=== PATIENT | male | born 1975 | race Caucasian/White ===

== ENCOUNTER 2019-01-05 15:07 | Outpatient (REF) | payer BC, SELFPAY ==
[2019-01-05 18:56] LABS: Calculated LDL 88 mg/dL; Cholesterol 134 mg/dL (50-200); Glucose 97 mg/dL (70-100); HDL Cholesterol 20 mg/dL (40-60); Triglyceride 133 mg/dL (30-150)
== END 2019-01-05 15:27 ==
LOC: NCHCN 15:07
PROVIDERS: PCP Family Medicine; Visit Provider Family Medicine
DX: Z00.00 Encounter for general adult medical examination without abnormal findings (principal); Z13.1 Encounter for screening for diabetes mellitus; Z13.220 Encounter for screening for lipoid disorders; E66.9 Obesity, unspecified
CPT/HCPCS: 80061; 82947

== ENCOUNTER 2020-03-13 20:51 | Outpatient (REF) | payer BC, SELFPAY ==
[2020-03-17 22:28] LABS: Patient Race White; SARS-CoV-2 RNA Undetected (Undetected); SARS-CoV-2 Specimen Source Nasal
== END 2020-03-13 21:11 ==
LOC: NCHCN 20:51
PROVIDERS: PCP Family Medicine; Visit Provider Nurse Practitioner Family
DX: Z20.828 Contact with and (suspected) exposure to other viral communicable diseases (principal)
CPT/HCPCS: U0003

== ENCOUNTER 2020-03-21 20:41 | Outpatient (REF) | payer BC, SELFPAY ==
[2020-03-23 13:50] LABS: Patient Race White; SARS-CoV-2 RNA Undetected (Undetected); SARS-CoV-2 Specimen Source Nasal
== END 2020-03-21 21:01 ==
LOC: NCHCN 20:41
PROVIDERS: PCP Family Medicine; Visit Provider Nurse Practitioner Family
DX: Z20.828 Contact with and (suspected) exposure to other viral communicable diseases (principal)
CPT/HCPCS: U0003

== ENCOUNTER 2023-11-22 18:13 | Emergency (ER) | payer BC, SELFPAY ==
[2023-11-22 18:20] VITALS: BP 154/100; PULSE 89; RESP 18; TEMP 37; O2SAT 97
[2023-11-22 18:23] VITALS: BP 154/100; PULSE 89; RESP 18; TEMP 37; O2SAT 97
--- NOTE | 2023-11-22 18:45 | ED.GENADUL_ITS ---
Discharge Plan Disposition Patient Disposition: Home Condition: Stable Discharge Details Chief Complaint: Sorethroat Clinical Impression: Sore throat Primary Care Provider: Dayanna Jang ED Provider: Rufino Jaramillo Home Meds and New Rx's Prescriptions: No Action No Known Home Meds Discharge Instructions Instructions: Viral Pharyngitis, Acid reflux and GERD in adults Additional Instructions: Please follow-up with your primary care physician. Return to the emergency department for any worsening symptoms HPI General Date/Time Provider Initiated Documentation: 11/22/23 18:24 . HPI Narrative: 48-year-old male presents with sore throat over the last 2 days worse after eating raspberries and blueberries, had a very cobbler last night, felt some esophageal regurgitation last night, no trouble swallowing no trouble speaking or trouble breathing. Related Data Home Medications ?Medication ?Instructions ?Recorded ?Confirmed Unknown [No Known Home Meds] 02/01/14 11/22/23 Allergies Allergy/AdvReac Type Severity Reaction Status Date / Time No Known Allergies Allergy Unverified 11/22/23 18:22 General Stated Complaint: Sorethroat VIVIAN: 4 Exam Narrative Exam Narrative: Alert interactive no acute distress resting comfortably Moist mucous membranes tolerating secretions Unremarkable posterior oropharynx midline uvula no exudate or asymmetry no sublingual submental or submandibular induration, no neck discomfort no palpable lymphadenopathy Speaking full sentences no respiratory distress No rash Course Vital Signs Vital signs: Vital Signs Temperature 37.0 C 11/22/23 18:20 Pulse 89 11/22/23 18:20 Respiratory Rate 18 11/22/23 18:20 Blood Pressure 154/100 H 11/22/23 18:20 Pulse Oximetry 97 11/22/23 18:20 Temperature 37.0 C 11/22/23 18:23 Temperature Source Temporal Artery Scan 11/22/23 18:23 Pulse 89 11/22/23 18:23 Respiratory Rate 18 11/22/23 18:23 Respiratory Effort Normal, Non-Labored 11/22/23 18:23 Blood Pressure 154/100 H 11/22/23 18:23 Blood Pressure Position Sitting 11/22/23 18:23 Pulse Oximetry 97 11/22/23 18:23 Oxygen Delivery Method Room Air 11/22/23 18:23 Oxygen Flow Rate 0 11/22/23 18:23 Lab/Test Results Lab/Test Results: 11/22/23 18:19 Tonsil - Not Specified Group A Streptococcus Culture - Pending POC Strep Test-DUDLEY(Rapid) Start: 11/22/23 18:24 Freq: .Rapid Strep Test Status: Active Protocol: Document 11/22/23 18:29 [facility] (Rec: 11/22/23 18:30 [facility] [id number]) Strep test-DUDLEY(Rapid)-POC POC-Strep test-DUDLEY (Rapid) Negative POC-Strep test-DUDLEY (Rapid) Negative Medical Decision Making 48-year-old male presents with sore throat over the last 2 days worse after eating raspberries and blueberries, had a very cobbler last night, felt some esophageal regurgitation last night, no trouble swallowing no trouble speaking or trouble breathing. Airway breathing circulation intact no signs of rash tongue secretions normal's voice no stridor unremarkable oropharynx, no evidence of deep space infection of head or neck, patient Dors that symptomatology is w orse after eating berries, consider mild. Allergy no evidence of anaphylaxis, muscles consider viral pharyngitis, negative for strep, home care instructions and return precautions given. Will give dose of dexamethasone and famotidine here. Consider component of gastritis or esophageal reflux given patient symptomatology last night. Quality:SDOH Health Related Social Needs: No Data to Display PFSH All Active Problems (Updated 11/22/23 @ 18:47 by Rufino Jaramillo MD) Sore throat (Acute) Social History Smoking/Tobacco Use Status: Current-Occasional Smoking risk assessment performed?: Yes Alcohol Intake: current Alcohol Intake frequency: holidays/special occasions only Drug use: Occasionally Substance use type: marijuana Do you feel safe at home: Yes Do you feel safe in your relationship?: Yes
[2023-11-22] MEDS: Famotidine 20 MG TAB PO (18:52)
[2023-11-22] MEDS: Dexamethasone 10 MG/ML VIAL PO (18:52)
== END 2023-11-22 18:54 | disposition home or self-care (01) ==
LOC: ER 20:18
PROVIDERS: Emergency Provider Emergency Medicine; PCP Family Medicine
DX: J02.9 Acute pharyngitis, unspecified (principal)
CPT/HCPCS: 87880; 99282; 87081; J1100

== ENCOUNTER 2023-11-24 11:23 | Observation (INO) | payer BC, SELFPAY ==
[2023-11-24] VITALS (57 sets, daily range): BP systolic 123–167; BP diastolic 74–121; PULSE 61–84; RESP 12–23; TEMP 36.5–37.1; O2SAT 91–97
--- NOTE | 2023-11-24 11:32 | DI.CT_ITS ---
Exam(s) CT NECK W EXAM: CT NECK W CLINICAL HISTORY: reed v epiglottis v paratonsil v RPA?. TECHNIQUE: Imaging Protocol: Axial computed tomography images with coronal and sagittal reformatted images were created and reviewed CONTRAST MATERIAL: Intravenous: Omnipaque 350 Contrast volume:100 ml contrast COMPARISON: No exams were available for comparison FINDINGS: Parotids: Normal. Submandibular glands: Normal. Thyroid gland: Normal. Lymph nodes: There are scattered lymph nodes seen along the level one to level three all measuring le ss than 8 mm in short axis diameter which are physiologic in nature. Carotids arteries: No significant stenosis or dissection. Vertebral arteries: No significant stenosis or dissection. Soft tissues: The floor the mouth is unremarkable. The tonsils and adenoids are unremarkable. No significant thickening of the epiglottis. Thickening of the aryepiglottic folds. Mild airway steven rowing. No evidence of retropharyngeal or other abscess. Lungs: Images through both lung apices are unremarkable. Bones: Minimal degenerative changes of the cervical spine. Old fracture and surgery to the left supe rior orbit. Visualized portions of the brain and orbits: Unremarkable. Sinuses and mastoids: Clear. IMPRESSION: Thickening of the aryepiglottic folds consistent with supraglottitis. No significant epiglottic thic kening. Evidence of abscess. Findings called to Dr. Jaramillo of the emergency department. RADIATION DOSE DELIVERED: Total DLP DATA REPOSITORY: All CT scans at this facility are submitted to the National Radiology Data Registry (NRDR) Dose Index Registry (DIR) with the [employer] (ACR). RADIATION OPTIMIZATION: All CT scans at this facility use at least one of these dose optimization te chniques: automated exposure control; mA and/or kV adjustment per patient size (includes targeted exa ms where dose is matched to clinical indication); or iterative reconstruction.
[2023-11-24] MEDS: Normal Saline 1,000 ML 1000 ML IV (11:50)
[2023-11-24 12:02] LABS: Abs Immature Grans 0.06 10^3/uL (0.0-0.06); Absolute Basophil Count 0.05 10^3/uL (0.0-0.2); Absolute Neutrophil Count 12.35 10^3/uL (1.2-6.7); Basophils % 0.3 %; Eosinophils % 0.4 %; HCT 48.7 % (40.0-50.0); HGB 16.8 g/dL (13.5-17.5); Immature Grans % 0.4 %; Lymphocytes % 12.1 %; MCH 31.8 pg (27.0-33.0); MCHC 34.5 % (32.0-36.0); MCV 92 fL (80-95); MPV 11.3 fL (8.0-11.0); Monocytes % 8.3 %; Neutrophils % 78.5 %; Platelet Count 212 10^3/uL (130-400); RBC 5.28 10^6/uL (4.36-5.78); RDW 12.3 % (11.8-14.1); RDW-SD 41.6 fL; WBC 15.73 10^3/uL (4.4-10.8)
[2023-11-24 12:03] LABS: Absolute Eosinophil Count 0.06 10^3/uL (0.0-0.7); Absolute Monocyte Count 1.31 10^3/uL (0.1-0.8)
[2023-11-24] MEDS: Ketorolac 15 MG/ML VIAL IVP (12:05)
[2023-11-24] MEDS: Dexamethasone 10 MG/ML VIAL IVP ×2 (12:06→20:03)
[2023-11-24] MEDS: AMPICILLIN/SULBACTAM 3 GM in Normal Saline 100 ML IVPB ×3 (12:08→23:26)
[2023-11-24 12:10] LABS: ALT 20 U/L (16-63); AST 15 U/L (15-37); Albumin 3.5 g/dL (3.4-5.0); Alkaline Phosphatase 87 U/L (46-116); BUN 15 mg/dL (7-18); Bilirubin, Total 1.07 mg/dL (0.2-1.0); Calcium 8.1 mg/dL (8.5-10.1); Chloride 109 mmol/L (98-107); Estimated GFR 91.69 (mL/min/1.73m2); Glucose 112 mg/dL (74-106); Potassium 4.1 mmol/L (3.5-5.1); Sodium 145 mmol/L (136-145); Total Protein 6.7 g/dL (6.4-8.2)
[2023-11-24 12:18] LABS: INR 1.1 (0.9-1.1); PTT Activated 25.5 sec (23.6-32.8)
[2023-11-24 12:30] LABS: Mono Screening Negative (Negative)
--- NOTE | 2023-11-24 12:33 | W.ED.GENAD ---
Discharge Plan Disposition Patient Disposition: Admit to [facility] Condition: Improving Discharge Details Chief Complaint: ThroatFB Clinical Impression: Adult supraglottitis Primary Care Provider: Dayanna Jang ED Provider: Rufino Jaramillo Home Meds and New Rx's Prescriptions: No Action No Known Home Meds HPI General Date/Time Provider Initiated Documentation: 11/24/23 11:27. HPI Narrative: 48-year-old male recent visit to emergency department presents with worsening sore throat, muffling to voice, pain with swallowing. Denies trouble breathing. Denies fevers chills or other systemic signs of illness. Related Data Home Medications ?Medication ?Instructions ?Recorded ?Confirmed Unknown [No Known Home Meds] 02/01/14 11/24/23 Allergies Allergy/AdvReac Type Severity Reaction Status Date / Time No Known Allergies Allergy Unverified 11/24/23 11:27 General Stated Complaint: ThroatFB VIVIAN: 3 Exam Narrative Exam Narrative: Mildly uncomfortable on examination Speaking full sentences mildly muffled voice, tolerating secretions mild erythema to oropharynx Breathing comfortably speaking full sentences lungs clear Some discomfort with palpation in submandibular space soft submental submandibular and sublingual space Alert oriented interactive moving all extremities Course Vital Signs Vital signs: Vital Signs Temperature 37.1 C 11/24/23 11:27 Pulse 84 11/24/23 11:27 Respiratory Rate 16 11/24/23 11:27 Blood Pressure 163/89 H 11/24/23 11:27 Pulse Oximetry 96 11/24/23 11:27 Temperature 37.1 C 11/24/23 11:27 Temperature Source Temporal Artery Scan 11/24/23 11:27 Pulse 84 11/24/23 11:27 Respiratory Rate 16 11/24/23 11:27 Blood Pressure 163/89 H 11/24/23 11:27 Blood Pressure Position Standing 11/24/23 11:27 Pulse Oximetry 96 11/24/23 11:27 Oxygen Delivery Method Room Air 11/24/23 11:27 Oxygen Flow Rate 0 11/24/23 11:27 Pain Level 4 11/24/23 11:27 Lab/Test Results Lab/Test Results: Laboratory Tests Range/Units 11/24/23 11/24/23 11:48 11:55 WBC (4.4-10.8) 10^3/uL 15.73 H RBC (4.36-5.78) 10^6/uL 5.28 Hgb (13.5-17.5) g/dL 16.8 Hct (40.0-50.0) % 48.7 MCV (80-95) fL 92 MCH (27.0-33.0) pg 31.8 MCHC (32.0-36.0) % 34.5 RDW (11.8-14.1) % 12.3 Plt Count (130-400) 10^3/uL 212 MPV (8.0-11.0) fL 11.3 H Immature Gran % % 0.4 Neutrophils % % 78.5 Lymphocytes % % 12.1 Monocytes % % 8.3 Eosinophils % % 0.4 Basophils % % 0.3 Nucleated RBC % (0.0-0.3) % 0.0 Absolute Neutrophils (1.2-6.7) 10^3/uL 12.35 H Absolute Lymphocytes (1.2-3.4) 10^3/uL 1.90 Absolute Monocytes (0.1-0.8) 10^3/uL 1.31 H Absolute Eosinophils (0.0-0.7) 10^3/uL 0.06 Absolute Basophils (0.0-0.2) 10^3/uL 0.05 PT (9.1-11.1) sec 11.0 INR (0.9-1.1) 1.1 APTT (23.6-32.8) sec 25.5 Sodium (136-145) mmol/L 145 Potassium (3.5-5.1) mmol/L 4.1 Chloride (98-107) mmol/L 109 H Carbon Dioxide (21.0-32.0) mmol/L 29.0 Anion Gap (3-11) mmol/L 7.0 BUN (7-18) mg/dL 15 Creatinine (0.70-1.30) mg/dL 1.0 Est GFR (CKD-EPI 2020) (mL/min/1.73m2) 91.69 Glucose (74-106) mg/dL 112 H Calcium (8.5-10.1) mg/dL 8.1 L Total Bilirubin (0.2-1.0) mg/dL 1.07 H AST (15-37) U/L 15 ALT (16-63) U/L 20 Alkaline Phosphatase (46-116) U/L 87 Total Protein (6.4-8.2) g/dL 6.7 Albumin (3.4-5.0) g/dL 3.5 Monoscreen (Negative) Negative Medical Decision Making 48-year-old male presents with worsening sore throat, muffled voice, pain with swallowing, tender to palpation submandibular region, soft submandibular submental and sublingual space, no stridor, tolerating secretions, no respiratory distress; consider progressive pharyngitis versus epiglottitis versus peritonsillar abscess versus retropharyngeal abscess versus early Frank's angina. Analgesia anti-inflammatory starting empiric Unasyn, sending patient to CT for CT neck with contrast 14: 53 evidence of aryepiglottic inflammation. Patient tolerating secretions. No respiratory distress. Have placed consultation with ENT at [facility] to discuss transfer for observation given proximity to epiglottis and mild voice changes. In the interim while waiting for callback patient's symptoms are improving after dexamethasone Toradol and Unasyn. Will continue to closely monitor respiratory status and airway status. 16: 04 [facility] ENT Dr. Murphy after reviewing case and images is comfortable with patient being observed here at [facility]. Recommending continuing dexamethasone every 8 hours for a total of 3 doses and continue Unasyn if patient is improving tomorrow can be discharged home on ciprofloxacin p.o. Discussed case with hospitalist Dr. Sethi who after reviewing patient and case will admit patient to ICU for close monitoring. Patient continues to improve tongue secretions normal voice no stridor tolerating ice chips at bedside. Quality:SDOH Health Related Social Needs: No Data to Display [facility] All Active Problems (Updated 11/24/23 @ 16:06 by Rufino Jaramillo MD) Adult supraglottitis (Acute) Sore throat (Acute) Social History Smoking/Tobacco Use Status: Current-Occasional Smoking risk assessment performed?: Yes Alcohol Intake: current Alcohol Intake frequency: holidays/special occasions only Drug use: Occasionally Substance use type: marijuana Do you feel safe at home: Yes Do you feel safe in your relationship?: Yes
[2023-11-24] MEDS: Normal Saline - Diluent 50 ML VIAL IJ (12:51)
[2023-11-24] MEDS: Omnipaque 350 MG/ML 100 ML BTL IJ (12:53)
--- NOTE | 2023-11-24 16:58 | W.PC.ACHO ---
Registration Status: Primary Language: Preferred Language: ED Information & Data Chief Complaint ThroatFB 11/24/23 14:11 Chief Complaint ThroatFB 11/24/23 12:36 Triage Note pt seen recently for sore 11/24/23 11:27 throat, all neg, now with worsening throat congestion, hoarse voice, no redness but unable to visualize back of mouth, warm but afebrile , no meds today, no allergies, VSS with HTN, pain 4/10, white froth when coughing. Most Recent Vital Signs Temperature 36.7 C 11/24/23 16:51 Temperature Source Temporal Artery Scan 11/24/23 11:27 Pulse 76 11/24/23 16:51 Pulse 67 11/24/23 15:20 Respiratory Rate 20 11/24/23 16:51 Respiratory Effort Normal 11/24/23 14:11 Respiratory Pattern Normal 11/24/23 14:10 Blood Pressure 165/90 H 11/24/23 16:51 Blood Pressure Mean 106 11/24/23 15:01 Blood Pressure Position Standing 11/24/23 11:27 Pulse Oximetry 95 11/24/23 16:51 Oxygen Delivery Method Room Air 11/24/23 11:27 Oxygen Flow Rate 0 11/24/23 11:27 Pain Level 4 11/24/23 11:27 Allergies No Known Allergies Allergy (Unverified 11/24/23 11:27) Precautions Isolation Standard precaution 11/24/23 14:11 Active Medications Generic Name Dose Route Start Last Admin Trade Name Flexq PRN Reason Stop Dose Admin Iohexol 100 ml 11/24/23 13:00 11/24/23 12:53 Omnipaque 350 Mg/Ml 100 Ml Btl IJ 12/24/23 23:59 100 ml DIRECTED RIKKI Administration Sodium Chloride 50 ml 11/24/23 13:00 11/24/23 12:51 Normal Saline - Diluent 50 Ml Vial IJ 50 ml .FOR DI USE RIKKI Administration IV IV Catheter Type [Right Saline Lock Antecubital] IV Catheter Gauge [Right 18 Antecubital] Diagnostics 11/24/23 11/24/23 Range/Units 11:55 11:48 WBC 15.73 H (4.4-10.8) 10^3/uL RBC 5.28 (4.36-5.78) 10^6/uL Hgb 16.8 (13.5-17.5) g/dL Hct 48.7 (40.0-50.0) % MCV 92 (80-95) fL MCH 31.8 (27.0-33.0) pg MCHC 34.5 (32.0-36.0) % RDW 12.3 (11.8-14.1) % Plt Count 212 (130-400) 10^3/uL MPV 11.3 H (8.0-11.0) fL Immature Gran % 0.4 % Neutrophils % 78.5 % Lymphocytes % 12.1 % Monocytes % 8.3 % Eosinophils % 0.4 % Basophils % 0.3 % Nucleated RBC % 0.0 (0.0-0.3) % Absolute Neutrophils 12.35 H (1.2-6.7) 10^3/uL Absolute Lymphocytes 1.90 (1.2-3.4) 10^3/uL Absolute Monocytes 1.31 H (0.1-0.8) 10^3/uL Absolute Eosinophils 0.06 (0.0-0.7) 10^3/uL Absolute Basophils 0.05 (0.0-0.2) 10^3/uL PT 11.0 (9.1-11.1) sec INR 1.1 (0.9-1.1) APTT 25.5 (23.6-32.8) sec Sodium 145 (136-145) mmol/L Potassium 4.1 (3.5-5.1) mmol/L Chloride 109 H (98-107) mmol/L Carbon Dioxide 29.0 (21.0-32.0) mmol/L Anion Gap 7.0 (3-11) mmol/L BUN 15 (7-18) mg/dL Creatinine 1.0 (0.70-1.30) mg/dL Est GFR (CKD-EPI 2020) 91.69 (mL/min/1.73m2) Glucose 112 H (74-106) mg/dL Calcium 8.1 L (8.5-10.1) mg/dL Total Bilirubin 1.07 H (0.2-1.0) mg/dL AST 15 (15-37) U/L ALT 20 (16-63) U/L Alkaline Phosphatase 87 (46-116) U/L Total Protein 6.7 (6.4-8.2) g/dL Albumin 3.5 (3.4-5.0) g/dL Monoscreen Negative (Negative) Intake and Output - 24 Hour Total 11/24/23 11:23 thru 11/24/23 13:18 Intake Total 1110 Balance 1110 Weight 122.47 kg Intake: IV 1110 Falls Risk Assessment Contributing Factors No Factors 11/24/23 14:09 Fall Total Score 0 11/24/23 14:09 Level of Risk Standard/Low Risk 11/24/23 14:09 v v v v v v v v v Sending and/or Receiving Nurses: Please use comment section below to note any information pertinent to the patient hand-off not included above. Information / Comments: All questions answered. Report received from: Barbara Portillo RN
--- NOTE | 2023-11-24 17:15 | HPE_ITS ---
Date of service: 11/24/23 Time of Service: 17:15 Assessment and Plan Assessment and plan (1) Adult supraglottitis: Status: Acute Assessment and plan: admission to ICU overnight for close observation w/ keeping a front of neck airway kit at the bedside (i.e. instruments for cricothyrotomy), continue decadron 10 mg Q8hr for 24 hr, continue Unasyn 3 gm iv q6h; if he continues to improve then can advance his diet but for now will keep NPO except ice chips and sips of water. Refer to ENT upon discharge and sen him home on oral antibiotics and taper of steroids. Case discussed w/ Dr. Alejandro E.D. provider. Patient and his family are comfortable staying here overnight as compared to transfer to a tertiary care center. [facility] does not have any bed capacity at present and their ENT, Dr. Murphy reviewed the patient's CT scans of his neck and discussed the case w/ Dr. Allen and feels that the patient does not need to transfer to [facility]. The patient was observed in the ED for over 5 hours with marked improvement in his voice phonation and swallowing ability and his breathing. Prior to the steroids and antibiotics, patient could not lie flat or even lie back w/out feeling dyspnea and trouble swallowing his saliva and his voice was very hoarse. His voice is now sounding more normal and he has no trouble handling his saliva or lying flat. The patient and his family are aware that we have no in house ENT and in the event of severe airway emergency he would need a front of neck surgical airway performed within minutes and this would be handled by the most able person who happens to be in house, i.e. emergency room physician or hospitalist or general surgeon if available. History of Present Illness History of Present Illness Chief Complaint: sore throat, short of breath, difficulty swallowing Narrative: 48 yr old male w/ hx of GERD (although no formal workup or treatment but dx by symptoms) who had been to the ED on 11/21 after presenting w/ complaints of sore throat of 2 days duration noted after his GERD symptoms worsened after eating a mohan cobbler made by his . He was concerned about possible allergic reaction to the berries so he presented to the ED where he was dx w/ viral pharyngitis and GERD, given pepcid and dexamethasone. He felt better until last night when he noted trouble lying flat, feeling dyspneic and this morning was having trouble handling his secretions. His daughter who is an EMS for [employer] came home this morning noted the foamy secretions he was spitting up because he could not swallow properly. He denies any fever, rigors, chest pain but noted that when he would lie flat or lie back he had trouble breathing but it would improve with standing or sitting up. He never had any facial swelling or swelling of his tongue and no rash or itching. In the ED a CT was performed of his neck and this demonstrated suprglottic edema of his aryepiglottic folds but no edema of the epiglottis itself and no abscess. Dr. Allen, ED provider, spoke w/ [facility] ENT, Dr. Murphy, who reviewed the patient's CT scan and after discussion w/ Dr. Allen, recommended that patient could be managed at [facility]. Dr. Murphy recommended continued Unasyn and decadron 10 mg IV q8 hr x 3 doses and upon discharge patient be sent home on oral steroids and Cipro w/ outpatient follow up w/ ENT. After lengthy discussion w/ patient and family, they are comfortable wtih this plan. The patient understands that if his condition were to worsen, he may need emergent front of neck surgical procedure, i.e. cricothyrotomy, to obtain an airway and prevent him from dying. Furthermore, he understands that we do not have in house surgery or ENT to perform this and that this procedure would have to be performed by whomever is available and most suited for the procedure, i.e., ED provider or the hospitalist (or a general surgeon if they are available). Review of Systems All systems reviewed & are unremarkable except as noted in HPI and below PFSH All Active Problems Adult supraglottitis (Acute) Sore throat (Acute) Social History Smoking/Tobacco Use Status: Current-Occasional Smoking risk assessment performed?: Yes Alcohol Intake: current Alcohol Intake frequency: holidays/special occasions only Drug use: Occasionally Substance use type: marijuana Housing: house Do you feel safe at home: Yes Do you feel safe in your relationship?: Yes Meds Allergies and Home Medications Allergies Allergy/AdvReac Type Severity Reaction Status Date / Time No Known Allergies Allergy Unverified 11/24/23 11:27 Home Medications ?Medication ?Instructions ?Recorded ?Confirmed ?Type Unknown [No Known Home Meds] 02/01/14 11/24/23 History Exam Narrative Exam Narrative: Obese white male seen sitting up on the ER gureney, no audible stridor, phonation seems normal, alert and oriented in no acute distress HEENT: Mallampati class IV, no swelling of the tongue and no exudate and no pooling of saliva Neck: obese but palpable edema of the submandibular space and the anterior cervical space w/ some tenderness, no redness, some anterior cervical adenopathy, normal carotid pulses and no JVD Lungs: anterior suprasternal space w/out stridor, no stridor or wheezing is heard through out the anterior and posterior lung rosa Heart: RRR, no murmur, rub or gallops Abdomen:obese, soft, nontender Extremities: no edema or cyanosis, normal ROM Results Imaging Imaging Studies: CT of the neck; IMPRESSION: Thickening of the aryepiglottic folds consistent with supraglottitis. No significant epiglottic thickening. Evidence of abscess. Labs 11/24/23 11:48 11/24/23 11:48 Labs: Laboratory Results - last 24 hr 11/24/23 11/24/23 11:48 11:55 WBC 15.73 H RBC 5.28 Hgb 16.8 Hct 48.7 MCV 92 MCH 31.8 MCHC 34.5 RDW 12.3 Plt Count 212 MPV 11.3 H Immature Gran % 0.4 Neutrophils % 78.5 Lymphocytes % 12.1 Monocytes % 8.3 Eosinophils % 0.4 Basophils % 0.3 Nucleated RBC % 0.0 Absolute Neutrophils 12.35 H Absolute Lymphocytes 1.90 Absolute Monocytes 1.31 H Absolute Eosinophils 0.06 Absolute Basophils 0.05 PT 11.0 INR 1.1 APTT 25.5 Sodium 145 Potassium 4.1 Chloride 109 H Carbon Dioxide 29.0 Anion Gap 7.0 BUN 15 Creatinine 1.0 Est GFR (CKD-EPI 2020) 91.69 Glucose 112 H Calcium 8.1 L Total Bilirubin 1.07 H AST 15 ALT 20 Alkaline Phosphatase 87 Total Protein 6.7 Albumin 3.5 Monoscreen Negative Last Vital Signs Temp 36.7 C 08/01/24 16:51 Pulse 76 11/24/23 16:51 Resp 20 11/24/23 16:51 BP 165/90 H 11/24/23 16:51 Pulse Ox 95 11/24/23 16:51 Time Spent Time spent with Patient: 55-74 minutes Time was spent: preparing to see the patient(eg.review tests), obtaining and/or reviewing separately otained hiistory, ordering medications,tests, procedures, referring, communicating with other health janitor caretaker, indepentently interpreting results, counseling the patient and care coordination
[2023-11-24] MEDS: Pantoprazole 40 MG VIAL IVP (18:29)
[2023-11-24] MEDS: Heparin 5,000 UNITS/ML VIAL 5000 UNITS SC (18:30)
[2023-11-24] MEDS: Normal Saline 10 ML VIAL IJ (18:46)
[2023-11-24] MEDS: Normal Saline Flush 10 ML SYR IVP ×2 (18:46→20:03)
[2023-11-24] MEDS: Normal Saline 500 ML IV (18:47)
[2023-11-25] VITALS (13 sets, daily range): BP systolic 117–127; BP diastolic 69–90; PULSE 57–81; RESP 14–23; TEMP 36–36.9; O2SAT 92–98
[2023-11-25] MEDS: Heparin 5,000 UNITS/ML VIAL 5000 UNITS SC (02:21)
[2023-11-25] MEDS: Dexamethasone 10 MG/ML VIAL IVP ×2 (04:08→10:10)
[2023-11-25] MEDS: AMPICILLIN/SULBACTAM 3 GM in Normal Saline 100 ML IVPB (06:05)
--- NOTE | 2023-11-25 09:06 | PDOC.CMIN ---
Date of service: 11/25/23 Time of Service: 09:06 Care Management Initial Assmt Initial Assessment Reason for Hospitalization: Supraglottic edema, pharyngitis Functional Status/Living Situation Town of Residence: [place] Advance Directives Advance Directives: Do you have an Advance Directive: N 01/21/14 13:47 AD On File at [facility]: N 01/21/14 13:47 Date Asked 11/22/23 11/22/23 18:33 AD Date Reviewed COLST On File at [facility] COLST Date Scanned Code Status Resuscitation Status Full Code Care Team Visit Care Team Role Provider Type Dayanna Jang MD Primary Care Provider [facility] STAFF PHYSICIAN Rufino Jaramillo MD Emergency Provider [facility] STAFF PHYSICIAN Jared Springer MD Admit Provider [facility] STAFF PHYSICIAN Attending Provider [facility] All Active Problems Adult supraglottitis (Acute) Sore throat (Acute) Social History Smoking/Tobacco Use Status: Current-Occasional Smoking risk assessment performed?: Yes Alcohol Intake: current Alcohol Intake frequency: holidays/special occasions only Drug use: Occasionally Substance use type: marijuana Housing: house Do you feel safe at home: Yes Do you feel safe in your relationship?: Yes SDOH(Care Management) Screening Will the Patient Participate in the Screening?: Yes Do you worry about having a steady place to live?: no Problems where you live: lead paints of pipes In the past 12 months, have you had to go without electric, gas, oil or water in your home?: no Have you or anyone in your house had to go without enough food to eat?: no Has lack of transportation kept you from medical appointments or from doing things needed for daily living?: no Has anyone in your support network made you feel unsafe for any reason?: no Social Determinants of Health Comments(SDOH Details): Lead paint in an old house. Family is actively in consultation with the State for lead abatement. Health Related Social Needs Health related social needs: inadequate housing(Z59.1)
[2023-11-25] MEDS: Normal Saline Flush 10 ML SYR IVP (09:35)
--- NOTE | 2023-11-25 10:04 | DSE_ITS ---
Date of service: 11/25/23 Time of Service: 10:04 DS: Diagnosis Discharge Diagnosis (1) Adult supraglottitis: Status: Acute Discharge Plan Disposition Patient Disposition: Home Condition: Improving Discharge Details Reason For Visit: supraglottic edema, pharyngitis Admit Date/Time: 11/24/23 16:07 Admit Provider: Jared Springer Attending Provider: Jared Springer Primary Care Provider: Dayanna Jang Hospital Course Hospital Course: See admission H&P for details of presenting symptoms and history. In summary this 48-year-old male relatively healthy with chronic symptoms of GERD presented with acute onset of difficulty swallowing and dyspnea with lying flat at night and trouble handling his oral secretions. CT scan of the neck demonstrated a supraglottitis. Patient was admitted to the intensive care unit after the case was reviewed by me from [facility] and they deemed that he did not need emergent transfer. Patient was started on IV Unasyn and IV Decadron. He received Decadron 10 mg IV every 8 hours x 4 doses. He was started on Unasyn and kept NPO. Cricothyrotomy tray was kept at the bedside. Patient had no difficulty with his airway throughout the night and by the following morning he was able to swallow soft regular foods with no difficulty. Examination on the day of discharge showed that he had no edema of his tongue or throat his Mallampati class had gone from a class IV to a class III. Patient has indicated to me that even on a good day he cannot see his uvula in the mirror. Edema in his neck had resolved overnight and tenderness over his neck and resolved. Lungs were clear there was no stridor. I called Dr. Thomas's office to discuss the case with Dr. Thomas who was not available but I indicated to his staff that the patient would need urgent follow-up next week. Patient was discharged home on a 7-day course of Levaquin 750 mg p.o. daily and a taper dose of prednisone beginning at 60 mg daily for 3 days and decreasing by 20 mg/day every 3 days until he is down to 10 mg daily for 3 days and then 5 mg daily for 3 days. He was also started on Protonix for his GERD symptoms. He has not had a formal workup of his GERD. Home Meds and New Rx's Prescriptions: New prednisone 20 mg tablet See Rx Instructions .ROUTE .COMPLEX Qty: 20 0RF Taper: Prednisone 20mg taper 60 mg Daily for 3 Days and 0 Hour 40 mg Daily for 3 Days and 0 Hour 20 mg Daily for 3 Days and 0 Hour 10 mg Daily for 3 Days and 0 Hour 5 mg Daily for 3 Days Rx Instructions: 20 mg orally ;See Taper orally levofloxacin 750 mg tablet 750 mg PO DAILY 7 Days Qty: 7 0RF pantoprazole [Protonix] [address] for susp in packet 40 mg PO DAILY Qty: 30 0RF Discharge Instructions Instructions: Soft Diet, Levofloxacin (Systemic), Epiglottitis (DC), Prednisone, Diet After Mouth or Throat Surgery Referrals: Dayanna Jang MD [Primary Care Provider] - (follow up within a week) Salvador Thomas MD [[facility] STAFF PHYSICIAN] - (needs to be seen within one week) Activity:: Activity as Tolerated Equipment/Supplies:: No Equipment Needed Diet:: soft diet Discharge Orders Discharge Orders: Discharge Order (Routine); Ordered 11/25/23 Ordered By: Jared Springer DS: Summary Time Spent with Patient providing and/or coordinating discharge services: Greater than 30 minutes Status at Discharge Functional status at discharge: independent ambulation Overall status at discharge: patient is back to baseline Mental Status: mental status grossly normal Speech and Movement: speech and movement normal Mood: congruent mood Affect: normal affect Quality:SDOH Health Related Social Needs: Health related social needs inadequate housing Exam Narrative Exam Narrative: Darrion is sitting up in bed, says that he has had no trouble lying down last night and has had no troubles swallowing. He is hungry and would like some real food this morning. He also wants to go home HEENT: normal phonation, no pooling of saliva, Mallampati class 3 (improved from class 4), no edema of his tongue, I can see his pillars and his uvula but not the lower tip of the uvula Neck: supple, nontender, edema has resolved No stridor; lungs clear Psych Mental Status: mental status grossly normal Speech and Movement: speech and movement normal Mood: congruent mood Affect: normal affect DS: Data Vitals/I&O Vitals and I&O: Vital Signs Temperature 36.9 C 11/25/23 08:13 Temperature Source Temporal Artery Scan 11/25/23 08:13 Pulse 71 11/25/23 08:13 Pulse 64 11/25/23 04:01 Respiratory Rate 23 11/25/23 08:13 Respiratory Effort Normal 11/25/23 08:13 Respiratory Depth Normal 11/25/23 08:13 Respiratory Pattern Normal 11/25/23 08:13 Blood Pressure 127/90 11/25/23 08:13 Blood Pressure Mean 102 11/25/23 08:13 Blood Pressure Position Right Lateral 11/25/23 04:10 Pulse Oximetry 95 11/25/23 08:13 Oxygen Delivery Method Room Air 11/25/23 08:13 Oxygen Flow Rate 0 11/25/23 08:13 Pain Level 0 11/25/23 08:13 Intake & Output 11/24/23 11/24/23 11/25/23 11:59 23:59 11:59 Intake Total 1760 / 1760 220 / 220 Output Total 375 / 375 650 / 650 Balance 1385 / 1385 -430 / -430 Weight 122.47 kg 123 kg 125.3 kg Intake: IV 1310 / 1310 100 / 100 Oral 450 / 450 120 / 120 Output: Urine 375 / 375 650 / 650 Other: Urine Color Yellow Dark Geno Urine Appearance Clear Clear Urine Odor None Comment Up ad tyrell to void in commode. voids in urinal Voiding Methods Bedside Commode Bedside Commode Data Completed and Pending Labs on day of discharge: Labs from last 24 hours 11/24/23 11/24/23 11:55 11:48 WBC 15.73 H RBC 5.28 Hgb 16.8 Hct 48.7 MCV 92 MCH 31.8 MCHC 34.5 RDW 12.3 Plt Count 212 MPV 11.3 H Immature Gran % 0.4 Neutrophils % 78.5 Lymphocytes % 12.1 Monocytes % 8.3 Eosinophils % 0.4 Basophils % 0.3 Nucleated RBC % 0.0 Absolute Neutrophils 12.35 H Absolute Lymphocytes 1.90 Absolute Monocytes 1.31 H Absolute Eosinophils 0.06 Absolute Basophils 0.05 PT 11.0 INR 1.1 APTT 25.5 Sodium 145 Potassium 4.1 Chloride 109 H Carbon Dioxide 29.0 Anion Gap 7.0 BUN 15 Creatinine 1.0 Est GFR (CKD-EPI 2020) 91.69 Glucose 112 H Calcium 8.1 L Total Bilirubin 1.07 H AST 15 ALT 20 Alkaline Phosphatase 87 Total Protein 6.7 Albumin 3.5 Monoscreen Negative PFSH All Active Problems Adult supraglottitis (Acute) Sore throat (Acute) Social History Smoking/Tobacco Use Status: Current-Occasional Smoking risk assessment performed?: Yes Alcohol Intake: current Alcohol Intake frequency: holidays/special occasions only Drug use: Occasionally Substance use type: marijuana Housing: house Do you feel safe at home: Yes Do you feel safe in your relationship?: Yes Time Spent with Patient Time Spent with Patient: <45 minutes Time was spent: preparing to see the patient(eg.review tests), ordering medications,tests, procedures, referring, communicating with other health childcare center director, indepentently interpreting results, counseling the patient and care coordination
--- NOTE | 2023-11-25 11:14 | PDOC.CMDIS ---
Date of service: 11/25/23 Time of Service: 11:14 LACE Index Scoring Tool Questions: Length of Stay (in days): 1 Was the patient admitted via the E.D.?: Yes E.D. Visits: 1 Answers: Total Score: 5 Risk of Readmission: Low Risk Care Management Discharge Plan Reason for Hospitalization: Supraglottic edema, pharyngitis Discharge Plan: Myron is discharged home via private vehicle with family. He will follow up with community providers and his discharge plan of care as instructed. ENT appointment is scheduled for 11/29/23 and PCP follow up is recommended within 1 week. No VNA services are ordered prior to discharge. Patient/Family Education Needs: Review discharge instructions, medications and plan for outpatient follow up. Discuss ask me three. SDOH Health Related Social Needs: Health related social needs inadequate housing Health related social needs: inadequate housing(Z59.1) (Home has lead paint and in contact with the State for help with a resolution. )
== END 2023-11-25 10:50 | disposition home or self-care (01) | DRG 153 ==
LOC: ER 16:35 → ICU 17:04
PROVIDERS: Admitting Provider Internal Medicine; Emergency Provider Emergency Medicine; PCP Family Medicine; Visit Provider Internal Medicine
DX: J04.30 Supraglottitis, unspecified, without obstruction (principal); K21.9 Gastro-esophageal reflux disease without esophagitis; F12.90 Cannabis use, unspecified, uncomplicated
CPT/HCPCS: 00123; 70491; 80053; 96361; 96365; 96366; 96372; 96375; 96376; 99285; 85025; 85610; 85730; 86308; 99222; 99238; G0378; J0295; J1100; J1644; J1885; J2470; J3490

== ENCOUNTER 2023-11-30 21:21 | Outpatient (REF) | payer BC, SELFPAY ==
[2023-11-30 15:18] LABS: ALT 39 U/L (16-63); AST 13 U/L (15-37); Albumin 3.5 g/dL (3.4-5.0); Alkaline Phosphatase 79 U/L (46-116); Anion Gap 9.3 mmol/L (3-11); BUN 13 mg/dL (7-18); Bilirubin, Total 0.38 mg/dL (0.2-1.0); CO2 26.7 mmol/L (21.0-32.0); Calcium 8.7 mg/dL (8.5-10.1); Calculated LDL 93 mg/dL (<100); Chloride 106 mmol/L (98-107); Cholesterol 146 mg/dL (<200); Estimated GFR 91.69 (mL/min/1.73m2); Glucose 108 mg/dL (74-106); HDL Cholesterol 41 mg/dL (40-60); Sodium 142 mmol/L (136-145); Total Protein 6.3 g/dL (6.4-8.2); Triglyceride 60 mg/dL (<150)
[2023-12-01 08:38] LABS: HIV-1/2 Ag & Ab Screen Negative (Negative)
[2023-12-01 09:10] LABS: Hepatitis C Ab w Rflx HCV PCR Negative (Negative)
[2023-12-01 12:20] LABS: Hemoglobin A1C 5.8 % (<5.7)
== END 2023-11-30 21:22 | disposition home or self-care (01) ==
LOC: NCHCN 21:21
PROVIDERS: PCP Family Medicine; Visit Provider Nurse Practitioner Family
DX: Z00.00 Encounter for general adult medical examination without abnormal findings (principal); Z13.6 Encounter for screening for cardiovascular disorders; Z13.1 Encounter for screening for diabetes mellitus; Z13.228 Encounter for screening for other metabolic disorders; Z11.4 Encounter for screening for human immunodeficiency virus [HIV]; Z11.59 Encounter for screening for other viral diseases
CPT/HCPCS: 80053; 80061; 86803; 87389; 83036

== ENCOUNTER 2024-03-02 06:43 | Day surgery (SDC) | payer BC, SELFPAY ==
--- NOTE | 2024-03-01 12:46 | W.PM.DSUDISC ---
Date of service: 03/02/24 Time of Service: 09:27 Discharge Plan Disposition Patient Disposition: Home Condition: Good Discharge Details Reason For Visit: EGD and colonoscopy Attending Provider: Rob Renee Primary Care Provider: Dayanna Jang Home Meds and New Rx's Prescriptions: Continued pantoprazole [Protonix] [address] for susp in packet 40 mg PO DAILY Qty: 30 0RF Discontinued bisacodyl 5 mg tablet,delayed release (DR/EC) 5 mg PO ONCE Qty: 4 0RF Rx Instructions: Per Colonoscopy bowel prep instructions polyethylene glycol 3350 17 gram/dose powder 238 g PO ONCE Qty: 238 0RF Rx Instructions: For Colonoscopy bowel prep, as directed by office Discharge Instructions Instructions: Peptic ulcers, Colon polyps Additional Instructions: Darrion, was very nice meeting you today, and I hope you are comfortable during the procedure. With regards to your upper endoscopy, you have signs of peptic ulcer disease. This typically occurs in patients who make excess gastric acid, although there are some other conditions that can cause it. I did some biopsies of the area to make sure that they are in fact simple ulcers. And those will take about a week or 2 for me to get the results of. I also took some biopsies of your stomach to see if I can identify any other source of the ulcers. For now, I would like you to continue using your pantoprazole. You should take this every day and be very careful not to miss any doses. Your colonoscopy also went very smoothly. I did find, and remove a total of 5 polyps. All of these were quite small. And none of them have any features that are worrisome to the naked eye. These will be sent off for testing similar to the biopsies from your stomach. The nature of these polyps will inform us as to the timing of your next colonoscopy. Hopefully will make a quick recovery and feel well over the days to come. If you need anything or have any questions, please do not hesitate to call, otherwise I will be in touch once I have all the results. 1. If tolerated, consume a soft, low fiber diet for 1-2 days. [address] Do not drive, drink alcohol, operate machinery, make critical decisions, or do activities that require coordination or balance for 24 hours. 3. Because air was put into your colon during the procedure, expelling air from your rectum (passing gas or farting) is normal. 4. You may not have a bowel movement for 1-3 days because of the colonoscopy prep. This is normal. 5. You may experience a sore throat for 24 to 48 hours. You may use throat lozenges or gargle with warm salt water to relieve the discomfort. 6. Because air was put into your stomach during the procedure, you may experience some belching. 7. Go directly to the emergency room if you notice any of the following: Develop chills (warm to touch), or if you have a thermometer and your temperature is above 101 Difficulty breathing or difficultly swallowing Persistent vomiting Severe abdominal pain, other than gas cramps Severe chest pain Black, tarry stools Any bleeding ? exceeding one tablespoon 8. Call your physician if the site where your intravenous was started becomes red, swollen, painful, and warm to touch. 9. Your physician has reviewed your pre-procedure medications. Please continue to take those medications as previously ordered. You will be given specific information/education regarding any changes to your medications before leaving. Activity:: Activity as Tolerated Diet:: As Tolerated DS: Diagnosis Discharge Diagnosis (1) Encounter for screening colonoscopy: Status: Acute Asessment and Plan: Follow-up on BIOPSY and polypectomy results
--- NOTE | 2024-03-01 12:47 | ENDO_ITS ---
Date of service: 03/02/24 Time of Service: 09:29 Endoscopy Report DATE OF PROCEDURE: 03/02/24 PRE-OP DIAGNOSIS: screening EGD and colonoscopy POST-OP DIAGNOSIS: other (Peptic ulcer disease; colon polyps) PROCEDURE: EGD with biopsies and colonscopy with polypectomy SURGEON: Rob Renee ANESTHESIA TYPE: General:No Airway ESTIMATED BLOOD LOSS: 10 PATHOLOGY: other (Biopsies of gastric antral ulcer, and duodenal ulcer, random biopsies of gastric body to rule out H. pylori; colon polyps at 65 cm x 2, 60 cm, 55 cm, 40 cm) COMPLICATIONS: None DISPOSITION: same day INDICATIONS: Myron is a 48 year old man who needs a screening colonoscopy and EGD because of longstanding GERD symptoms depite PPI therapy PREP: Miralax/Dulcolax PROCEDURE START TIME: 08:49 PROCEDURE END TIME: 09:13 COLONOSCOPY RETRACTION TIME: 9 FINDINGS: Gastric antral inflammation and ulceration, duodenal ulceration; colon polyps at 65 cm x 2, 60 cm, 55 cm, 40 cm PROCEDURE DESCRIPTION: After the initiation of monitored anesthetic care, and with the assistance of a bite block, I advanced a standard gastroscope through the mouth past the hypopharynx and into the esophagus.? Under the direct vision of the scope, I advanced down the esophagus towards the stomach.? The upper, mid, and lower esophagus were all normal and healthy appearing. The Z-line was just mildly irregular around 46 cm from the incisors. Narrowband imaging was used to assist with the analysis here. Clinical features did not seem consistent with Orozco's esophagus. I advanced down into the stomach and insufflated into the rugae were obliterated. I performed retroflexion. There are no signs of any hiatal hernia. Next, I turned the camera forward and maneuvered down around the incisura angularis towards the pylorus. There was some thickening of the gastric antral tissue, and 1 discrete area of what appeared to be healing gastric ulcer. Edges were heaped up very slightly. There was no evidence of any recent bleeding. Biopsies were performed of this and labeled as gastric antrum. I was able to navigate across the pylorus into the duodenum. The duodenal bulb was friable and irritated. There was some heaped up tissue along the anterior aspect. Just as the bulb connects with the first portion of the duodenum. There are no visible vessels here. I performed multiple biopsies of this, which I assume to be a large peptic ulcer. I am able to navigate down to wards the second and third portions of the duodenum. This mucosa looks normal and healthy. I then brought the camera back up into the stomach. I perform some cold forceps biopsies of the gastric body to rule out Helicobacter pylori as a source of the irritation. Stomach was then emptied, and the camera was brought back out along the length of the esophagus 1 last time. We then moved Darrion into the left lateral decubitus position. I began by performing an external anorectal exam.? Perineum and skin were normal, as was the anal verge.? There was no evidence of external hemorrhoids.? Next, I performed a digital rectal exam.? I did not appreciate any abnormal findings.? Next, I advanced a colonoscope into the rectal vault.? I performed retroflexion.? This appeared normal using insufflation, I then advanced the colonoscope beyond the rectal folds and into the sigmoid colon before advancing towards the cecum.? The quality of the prep was excellent.? The scope was noted to be in the cecum by identification of the ileocecal valve and appendiceal orifice.? I then began withdrawing the colonoscope using repeated irrigation as necessary for full evaluation of the colonic mucosa. Around 65 cm from the anal verge were 2 polyps. These were both flat. These were removed with cold forceps and sent as a single specimen. I also found polyps at 60, 55, and 40 cm. All of these were about 0.25 cm and flat. All removed with cold forceps without any difficulty. Once the scope was withdrawn to the level of the rectum, great care was taken to examine portions of the rectal folds.? Finally, the scope was withdrawn and the patient was brought to the same-day surgery recovery unit as the anesthetic wore off. ?The findings and instructions were shared with the patient prior to discharge. [place] bowel prep score from right to left was 3, 3, 3
--- NOTE | 2024-03-01 12:49 | W.PREOPHP ---
Assessment and Plan Assessment and plan (1) Encounter for screening colonoscopy: Status: Acute Assessment and plan: We reviewed the plan for screening colonoscopy today, as well as a screening EGD given his longstanding gastroesophageal reflux disease symptoms. Darrion has a very good understanding of the nature of the procedure. He was offered the opportunity to ask any questions that he might have. All questions were answered. He was able to provide informed consent,, forward with EGD and colonoscopy as planned. History of Present Illness History of Present Illness Chief Complaint: screening colonsocopy Narrative: Patient is a 48-year-old male who is sent over by his primary care provider. He had a colonoscopy at the age of 38 for concern of family history, and then again at 41 years Old. Turns out his brother had small intestine cancer, not colon cancer, and he was then told to wait until he was 48. Today he reports regular bowel movements twice daily. The consistency varies a bit from formed to loose. He denies any blood in the stool or on the toilet paper when he wipes. He denies abdominal pain. He denies nausea or vomiting. He denies loss of appetite or unintentional weight loss. He denies fevers or chills or night sweats. He has no family history of colon cancer. He does report some reflux symptoms that occur not infrequently. At least a couple times a week. The most prominent symptom is that he sometimes wakes up at night with some foamy liquid in the back of his throat that causes him to cough and choke. He knows to avoid eating late at night, although he often does because of work and family constraints. He knows to avoid tomato-based and citrus foods as well as most beverages besides water. He recently had an upper respiratory infection, was seen by ENT, and was started on a PPI. This was about 3 weeks ago. He has not noticed any change in his reflux symptoms since starting the PPI. [facility] All Active Problems Encounter for screening colonoscopy (Acute) Tobacco user (Acute) Impacted cerumen, bilateral (Acute) Adult supraglottitis (Acute) Sore throat (Acute) Medical History Hx of fracture of skull Forehead reconstruction 2000 Throat swelling Sigmoidoscopy exam (~11/2007) Hyperplastic colon polyp (~2007) Adenomatous colon polyp Surgical History H/O left inguinal hernia repair History of colonoscopy with polypectomy (~10/25/11) Social History Smoking/Tobacco Use Status: Current-Occasional Tobacco Type: cigarettes Smoking risk assessment performed?: Yes Alcohol Intake: current Alcohol Intake frequency: holidays/special occasions only Drug use: Occasionally Substance use type: marijuana Housing: house Do you feel safe at home: Yes Do you feel safe in your relationship?: Yes Meds Allergies and Home Medications Allergies Allergy/AdvReac Type Severity Reaction Status Date / Time Sulfa (Sulfonamide AdvReac Mild vomiting Verified 03/02/24 06:57 Antibiotics) Home Medications ?Medication ?Instructions ?Recorded ?Confirmed ?Type pantoprazole 40 mg granules 40 mg PO DAILY #30 ea 11/25/23 03/02/24 Rx delayed-release for susp in packet (Protonix) Exam Const General: cooperative, healthy appearing and not in acute distress Neck Neck: normal visual inspection, no lymphadenopathy and supple Resp Effort & Inspection: normal respiratory effort Auscultation: clear to auscultation bilaterally Cardio Jugular venous pressure: no JVD Rate: regular rate Rhythm: regular rhythm Heart Sounds: S1 normal and S2 normal Neuro General: patient alert, patient awake and patient oriented x3 Psych Appearance: grossly normal
[2024-03-02 06:58] VITALS: BP 119/95; PULSE 72; RESP 20; TEMP 36.7; O2SAT 95
--- NOTE | 2024-03-02 07:34 | W.ANESPRE ---
General Info Date of Service Date Performed: 03/02/24 Height: 6 ft 2 in Weight: 123.3 kg Body Mass Index (BMI): 34.9 Surgical Procedure: Operation Date: 03/02/24 08:20 Proposed Procedure Side Surgeon p Colonoscopy/Gastroscopy Rob Renee MD Meds Allergies and Home Medications Allergies Allergy/AdvReac Type Severity Reaction Status Date / Time Sulfa (Sulfonamide AdvReac Mild vomiting Verified 03/02/24 06:57 Antibiotics) Home Medication ?Medication ?Instructions ?Recorded pantoprazole 40 mg granules 40 mg PO DAILY #30 ea 11/25/23 delayed-release for susp in packet (Protonix) Current Visit Medications: Current Medications Generic Name Dose Route Start Last Admin Trade Name Freq PRN Reason Stop Dose Admin IV Miscellaneous Supplies 1 each 03/02/24 06:00 Iv Access IV 03/31/24 23:59 DIRECTED RIKKI Sodium Chloride 0 ml 03/02/24 06:00 Normal Saline Flush 10 Ml Syr IV 03/31/24 23:59 PRN PRN Sodium Chloride 0 ml 03/02/24 06:00 Normal Saline 10 Ml Vial IJ 03/31/24 23:59 DIRECTED PRN Sterile Water 0 ml 03/02/24 06:00 Water,Injection,Sterile 10 Ml Vial IJ 03/31/24 23:59 DIRECTED PRN PFSH Active Problems Active Problems: Problem Status Onset Code Encounter for screening colonoscopy Acute Z12.11 Tobacco user Acute Z72.0 Impacted cerumen, bilateral Acute H61.23 Adult supraglottitis Acute J04.30 Sore throat Acute J02.9 Medical History Medical History Hx of fracture of skull Forehead reconstruction 2000 Throat swelling Sigmoidoscopy exam (~11/2007) Hyperplastic colon polyp (~2007) Adenomatous colon polyp Medical History Comments:: Pt. states I coughed a lot last time they said it was maybe because the tube scratched my throat or something Surgical History Surgical History H/O left inguinal hernia repair History of colonoscopy with polypectomy (~10/25/11) Tobacco Smoking/Tobacco Use Status: Current-Occasional Tobacco Type: cigarettes Alcohol Alcohol Intake: current Alcohol intake frequency: holidays/special occasions only Substance Use Substance use: Occasionally Substance use type: marijuana Vital Signs and Lab Results Vital Signs Most Recent Vital Signs in EMR: Most Recent Vital Signs Temp Pulse Resp BP Pulse Ox 36.7 C 72 20 119/95 H 95 03/02/24 06:58 03/02/24 06:58 03/02/24 06:58 03/02/24 06:58 03/02/24 06:58 Lab Results Blood Type / Crossmatch: No Data to Display Complete Blood Count: No Data to Display Complete Metabolic Panel: No Data to Display Liver Function Panel: No Data to Display Coagulation Panel: No Data to Display Cardiac Panel: No Data to Display Arterial Blood Gas: No Data to Display Venous Blood Gas: No Data to Display Pancreas Panel: No Data to Display Thyroid Panel: No Data to Display Infectious Disease: No Data to Display Blood Cultures: No Data to Display Toxicology Panel: No Data to Display Anesthesia Assessment and Plan Anesthesia History Personal History: No History of Anesthesia Complications and Other Family History: No Family History of Anesthesia Complications Exercise Tolerance Exercise Tolerance: Metabolic Equivalents>4 Pertinent Negatives Pertinent Negatives: No Symptoms of GERD Cardiac & Pulmonary Exam Cardiac Exam: Normal S1/S2 Heart Sounds Pulmonary Exam: Clear Bilateral Breath Sounds Implantable Cardiac Device Does patient have a Pacemaker or an ICD?: No Airway Exam Known Difficult Airway: No Mallampati Class: 1 Mouth Opening: Normal (> 3cm) Thyromental Distance: Less than 3 cm Neck Range of Motion: Full ROM Neck Circumference: Normal Teeth Condition: Normal Dentition ASA Classification ASA Score: ASA 2 Emergency Case?: No NPO Status NPO Status: NPO Clears >2 hours, Solids >8 hours Anesthesia Plan Resuscitation Status: Full Code Anesthesia Technique: General Anesthesia Airway Planned: Natural Airway Monitors Used: Standard Monitors
[2024-03-02 07:35] VITALS: BMI 34.9
--- NOTE | 2024-03-02 08:51 | BOWEL_PTH ---
PATIENT: Myron Jacques LOC: [facility] U#:[id number] AGE/SX: 48/M ROOM: RE03/02/[address]: Rob Renee MD : 1975 BED: DIS: 03/02/2024 SPEC #: [id number] RECD: 03/02/24 12:34 STATUS: DOUG RE #: [id number] FAZAL: 03/02/24 08:[address]: Rob Renee DEPT: Surgical Specimen RECD BY: Kadi Akhtar ENTERED: 03/02/24 12:36 SP TYPE: Bowel OTHR DR: Dayanna Jang Tissues: 1 - STOMACH BIOPSY 2 - BIOPSY BOWEL 3 - STOMACH BIOPSY 4 - BIOPSY BOWEL 5 - BIOPSY BOWEL 6 - BIOPSY BOWEL 7 - BIOPSY BOWEL Procedures: GROSS AND MICRO LEVEL 4 Comments: [id number]
[2024-03-02 09:22] VITALS: BP 127/82; PULSE 72; RESP 18; TEMP 36.8; O2SAT 93
[2024-03-02 09:43] VITALS: BP 124/90; PULSE 62; RESP 18; TEMP 36.6; O2SAT 93
--- NOTE | 2024-03-02 10:28 | W.ANESPOSTOP ---
Postoperative Evaluation Date, Time and Location Date Performed: 03/02/24 Time Performed: 10:01 Patient Location: Day Surgery Unit Vital Signs Most Recent Imported Vital Signs: Most Recent Vital Signs Temp Pulse Resp BP Pulse Ox 36.6 C 62 18 124/90 93 03/02/24 09:43 03/02/24 09:43 03/02/24 09:43 03/02/24 09:43 03/02/24 09:43 Pain Score Most Recent Pain Score: Most Recent Pain Score Pain Level 0 03/02/24 09:43 Assessment Mental Status: Awake (Alert & Oriented to Patient Baseline) Airway and Respiratory Function: Patent airway with normal (patient baseline) respiratory exam Cardiovascular Function: Hemodynamically Stable Hydration Status: Adequately Hydrated Nausea & Vomiting: No Nausea or Vomiting Pain: Pt. Denies Any Pain Peripheral Nerve Block: Patient did not receive a nerve block
--- NOTE | 2024-03-02 13:28 | W.ANESPOSTOP ---
Postoperative Evaluation Date, Time and Location Date Performed: 03/02/24 Time Performed: 09:45 Patient Location: Day Surgery Unit Vital Signs Most Recent Imported Vital Signs: Most Recent Vital Signs Temp Pulse Resp BP Pulse Ox 36.6 C 62 18 124/90 93 03/02/24 09:43 03/02/24 09:43 03/02/24 09:43 03/02/24 09:43 03/02/24 09:43 Most Recent Vital Signs Temp Pulse Resp BP Pulse Ox 36.6 C 62 18 124/90 93 03/02/24 09:43 03/02/24 09:43 03/02/24 09:43 03/02/24 09:43 03/02/24 09:43 Pain Score Most Recent Pain Score: Most Recent Pain Score Pain Level 0 03/02/24 09:43 Assessment Mental Status: Awake (Alert & Oriented to Patient Baseline) Airway and Respiratory Function: Patent airway with normal (patient baseline) respiratory exam Cardiovascular Function: Hemodynamically Stable Hydration Status: Adequately Hydrated Nausea & Vomiting: No Nausea or Vomiting Pain: Pt. Denies Any Pain Peripheral Nerve Block: Patient did not receive a nerve block
== END 2024-03-02 09:56 | disposition home or self-care (01) ==
LOC: SUR 06:43
PROVIDERS: PCP Family Medicine; Visit Provider Surgery
PROC: (CPT 45380; principal; 2024-03-02 08:15)
DX: Z12.11 Encounter for screening for malignant neoplasm of colon (principal); D12.5 Benign neoplasm of sigmoid colon; K21.9 Gastro-esophageal reflux disease without esophagitis; K27.9 Peptic ulcer, site unspecified, unspecified as acute or chronic, without hemorrhage or perforation; D12.4 Benign neoplasm of descending colon; K31.89 Other diseases of stomach and duodenum; K29.80 Duodenitis without bleeding
CPT/HCPCS: 45380; 43239; 88305; J2704